=== PATIENT | male | born 1940 | race Caucasian/White ===

== ENCOUNTER → 2023-08-17 16:44 | Outpatient (REF) | payer MEDICARE, OTHER, SELFPAY ==
[2023-08-17 19:02] LABS: PSA, Total - Diagnostic 5.09 ng/ml (0.0-4.0)
== END ==
LOC: REG 16:44
PROVIDERS: ATTENDING PHYSICIAN Specialist; FAMILY PHYSICIAN Internal Medicine
DX: R97.20 Elevated prostate specific antigen [PSA] (principal)
CPT/HCPCS: 36415; 84153

== ENCOUNTER → 2024-04-10 09:09 | Outpatient (REF) | payer OTHER, SELFPAY ==
[2024-04-10 12:04] LABS: PSA, Total - Diagnostic 4.71 ng/ml (0.0-4.0)
== END ==
LOC: REG 09:09
PROVIDERS: ATTENDING PHYSICIAN Specialist; FAMILY PHYSICIAN Internal Medicine
DX: R97.20 Elevated prostate specific antigen [PSA] (principal)
CPT/HCPCS: 36415; 84153

== ENCOUNTER → 2024-10-02 12:31 | Outpatient (REF) | payer OTHER, SELFPAY ==
[2024-10-02 13:02] LABS: % Basophils 0.7 % (0-2); % Eosinophils 2.4 % (0-6); % Immature Granulocytes 0.3 % (0-0.5); % Lymphocytes 19.4 % (20.5-51.1); % Monocytes 8.6 % (1.7-9.3); % Neutrophils 68.6 % (42.2-75.2); Absolute Basophils 0.1 10^3/uL (0-0.2); Absolute Eosinophils 0.2 10^3/uL (0-0.7); Absolute Lymphocytes 1.4 10^3/uL (1.2-3.4); Absolute Monocytes 0.6 10^3/uL (0.1-0.6); Absolute Neutrophils 4.9 10^3/uL (1.4-6.5); Hematocrit 43.9 % (39.0-52.0); Hemoglobin 14.4 g/dL (13.0-18.0); Mean Corp Hgb Conc. 32.8 g/dL (33.0-37.0); Mean Corpuscular Hgb 30.3 pg (27.0-31.0); Mean Corpuscular Volume 92.4 fL (80.0-94.0); Mean Platelet Volume 11.2 fL (7.4-10.4); Nucleated Red Blood Cells % 0 % (-); Platelet Count 215 10^3/uL (130-400); Red Blood Cell Count 4.75 10^6/uL (4.70-6.10); Red Cell Dist. Width 12.6 % (11.5-14.5); White Blood Cell Count 7.1 10^3/uL (4.8-10.8)
[2024-10-02 14:10] LABS: Blood Urea Nitrogen 41 mg/dl (9-20); Calcium 9.5 mg/dl (8.4-10.2); Carbon Dioxide 21 mmol/L (22-30); Chloride 110 mmol/L (98-107); Glucose 109 mg/dl (70-99); Potassium 5.9 mmol/L (3.5-5.1); Sodium 138 mmol/L (135-145); eGFR 34.35
[2024-10-02 14:45] LABS: TSH Reflex To Free T4 3.79 uIU/ml (0.47-4.68)
== END ==
LOC: CLAB 12:31
PROVIDERS: ATTENDING PHYSICIAN Emergency Medicine
DX: R00.2 Palpitations (principal)
CPT/HCPCS: 36415; 80048; 84443; 85025

== ENCOUNTER 2024-10-03 08:45 | Emergency (ER) | payer OTHER, SELFPAY ==
[2024-10-03 08:52] VITALS: BP 129/86
--- NOTE | 2024-10-03 09:09 | ED.GENMED ---
History of Present Illness
General
Chief Complaint: Abnormal Lab Value
Time Seen by Provider: 10/03/24 08:59
History of Present Illness
History of Present Illness:
Patient is an 84-year-old male with past medical history of BPH here today after he underwent laboratory testing at an urgent care on 10/01/24 and was found to have an abnormal potassium level which was noted to be elevated at 5.9. Patient
originally went to the urgent care as he reports having a 'cold' over the past 1 week which consisted of a cough and congestion. No fevers. No vomiting. No breathing problems noted. Patient also noted palpitations. Patient was diagnosed with a
respiratory illness and supportive measures were recommended. Blood work was obtained which ultimately revealed the elevated potassium level. Unknown hemolyzation. An EKG was obtained given reported palpitations which patient was found to have
evidence of premature ventricular contractions. He was recommended to follow-up with cardiology. Today, patient reports feeling better overall. He denies acute complaints currently.
Past History
Past History
ED Past Medical History: Renal failure (Mild renal insufficiency.) and Other (BPH); Negative CAD
ED Past Surgical History: Cholecystectomy
Social History
Tobacco: Non-smoker
Alcohol: Occasional
Drug: None
Personal:
Living: with family
Employment: Retired
Family History
Family History: Other (Noncontributory)
Review of Systems
Review of Systems
All Other Systems: ROS reviewed and negative except as documented in HPI and ROS
Phy Exam
Physical Exam
Physical Exam:
GENERAL: Alert , in no apparent distress
EYE: pupils equal and reactive
NECK: Supple, no significant adenopathy.
ENT: o/p clr, mmm.
CARDIAC: Regular rate and rhythm .
LUNGS: Clear breath sounds bilaterally, no acute respiratory distress, no wheezes/rales/rhonchi
ABDOMEN: Soft, without focal tenderness, no r/g, no cvat
NEUROLOGICAL: Alert and oriented, no focal neuro deficits
SKIN: Warm and dry, skin intact.
MUSCULOSKELETAL: No edema, well perfused.
PSYCH: Normal and appropriate interaction.
Course
Orders/Labs/Results
Orders:
Orders
10/03/24 08:56
Electrocardiogram (*1) Urgent
Reason for Study: Abnormal EKG
EKG- Treatment ONCE
10/03/24 09:09
CR Chest - 2 Views Urgent
Comment:
Reason For Exam: palpitations
10/03/24 09:12
Complete Blood Count/With Diff Urgent
Comprehensive Metabolic Panel Urgent
Magnesium Urgent
Phosphorus Urgent
TSH Reflex To Free T4 Urgent
Troponin I Urgent
10/03/24 10:52
CT Chest With Iv Contrast Urgent
Comment:
Reason For Exam: abnormal chest ct, lung nodule
Abnormal Lab Results
10/03/24
09:12
RBC 4.30 L 10^6/uL
(4.70-6.10)
Absolute Lymphs (auto) 1.1 L 10^3/uL
(1.2-3.4)
Immature Gran % 0.7 H %
(0-0.5)
Lymphocytes % 17.9 L %
(20.5-51.1)
Chloride 113 H mmol/L
(98-107)
BUN 50 H mg/dl
(9-20)
Creatinine 1.6 H mg/dL
(0.7-1.3)
Glucose 102 H mg/dl
(70-99)
Total Protein 6.1 L g/dl
(6.3-8.2)
10/03/24 09:12
10/03/24 09:12
Vital Signs
Initial and Last Documented VS:
Initial Vital Signs
Temp Pulse Resp BP Pulse Ox
98.4 F 77 18 129/86 95
10/03/24 08:52 10/03/24 08:52 10/03/24 08:52 10/03/24 08:52 10/03/24 08:52
Last Documented Vital Signs
Temp Pulse Resp BP Pulse Ox
98.4 F 63 20 129/86 95
10/03/24 08:52 10/03/24 11:30 10/03/24 11:30 10/03/24 08:52 10/03/24 09:29
MDM/Problems Addressed
Differential Diagnosis Includes:
Patient is an 84-year-old male with past medical history of BPH here today for an abnormal potassium level. Overall, patient appears very well. Vital signs grossly within normal limits. Physical examination described above. Repeat EKG was
obtained which reveals no acute abnormalities. No evidence of PVCs. We will repeat the patient's blood work and determine if the potassium was a true elevation or falsely elevated secondary to hemolysis. Will monitor.
10/03/2024 13:39: Screening labs reveal an elevated BUN and creatinine which is grossly consistent with the patient's baseline. Potassium which was previously elevated is now normal at 4.7. EKG nonischemic without acute abnormalities. Chest x-ray
shows a right lung base rounded opacity which radiology recommends CT scan. This was performed which reveals no findings noted and the previously noted abnormality was likely artifact. There is evidence of infectious or inflammatory bronchiolitis
on the patient's chest x-ray which explains the most recent cough/cold. This is likely viral and will recommend continued supportive measures. We discussed close follow-up with patient's primary care provider as well as cardiology evaluation for
Holter monitor and further evaluation of the PVCs. All questions answered. Stable for discharge
*Pulse Oximetry
SaO2: 95
Oxygen Mode of Delivery: Room air
Patient hypoxic: not evaluated
*EKG
Interpreted by ED Provider?: Yes
EKG Intrepretation Date: 10/03/24
EKG Intrepretation Time: 09:29
Interpretation: normal
Heart Rate: 68
Rate: normal
Rhythm: sinus
[place]: normal axis
Interval: normal interval
QRS Pattern: normal QRS
Ischemia: no ischemia
*Critical Care Note
Total Time (30-74mins, 75-104mins- exclusive of procedures): Not Applicable
ED Attending Note
-
Portions of this chart may have been created with voice recognition software.� Occasional wrong word or��sound alike� substitutions may have occurred due to the inherent limitations of voice recognition software.
Discharge Plan
Departure
Patient Disposition: Home (Routine Discharge)
Date of Disposition: 10/03/24
Time of Disposition: 13:41
Patient with high blood pressure during this ER visit?: No
Condition: Good
Discharge Problem:
Abnormal laboratory test, Palpitations, Bronchiolitis
Instructions: Palpitations
Prescriptions:
No Action
dutasteride 0.5 mg capsule
0.5 mg PO DAILY
Referrals:
Farooq Madden MD [Active, Cardiology] - Follow up in 1 week
Abraham Padilla MD [Family Provider, Internal Medicine] - Follow up in 2-3 days
Activity Restrictions/Additional Instructions:
Please follow-up with your primary care provider as well as cardiology for further testing and evaluation.
Return for any new, worsening, or concerning symptoms.
Interventions
Interventions:
*Risk Screen - Suicide Last Done: 10/03/24 08:52
*General Assessment Last Done: 10/03/24 08:52
*Neglect/Abuse Screening Last Done: 10/03/24 08:52
Discharge Date and Time
Print Language: SUDANESE
[2024-10-03 09:32] LABS: % Basophils 0.7 % (0-2); % Eosinophils 1.8 % (0-6); % Immature Granulocytes 0.7 % (0-0.5); % Lymphocytes 17.9 % (20.5-51.1); % Monocytes 9.1 % (1.7-9.3); % Neutrophils 69.8 % (42.2-75.2); Absolute Eosinophils 0.1 10^3/uL (0-0.7); Absolute Lymphocytes 1.1 10^3/uL (1.2-3.4); Absolute Monocytes 0.6 10^3/uL (0.1-0.6); Absolute Neutrophils 4.2 10^3/uL (1.4-6.5); Hematocrit 39.4 % (39.0-52.0); Hemoglobin 13.3 g/dL (13.0-18.0); Mean Corp Hgb Conc. 33.8 g/dL (33.0-37.0); Mean Corpuscular Hgb 30.9 pg (27.0-31.0); Mean Corpuscular Volume 91.6 fL (80.0-94.0); Mean Platelet Volume 9.5 fL (7.4-10.4); Nucleated Red Blood Cells % 0 % (-); Platelet Count 208 10^3/uL (130-400); Red Cell Dist. Width 12.8 % (11.5-14.5)
[2024-10-03 09:58] LABS: ALT (SGPT) 22 U/L (0-50); AST (SGOT) 27 U/L (17-59); Albumin 3.7 g/dl (3.5-5.0); Alkaline Phosphatase 75 U/L (38-126); Blood Urea Nitrogen 50 mg/dl (9-20); Carbon Dioxide 23 mmol/L (22-30); Chloride 113 mmol/L (98-107); Glucose 102 mg/dl (70-99); Magnesium 2.2 mg/dl (1.6-2.3); Phosphorus 4.2 mg/dl (2.5-4.5); Potassium 4.7 mmol/L (3.5-5.1); Sodium 141 mmol/L (135-145); Total Bilirubin 0.5 mg/dl (0.2-1.3); Total Protein 6.1 g/dl (6.3-8.2); eGFR 42.22
[2024-10-03 10:06] LABS: Troponin I < 0.012 ng/ml
[2024-10-03 10:26] LABS: TSH Reflex To Free T4 2.58 uIU/ml (0.47-4.68)
[2024-10-03 11:38] VITALS: BP 135/78
[2024-10-03 12:00] VITALS: BP 130/73
[2024-10-03 13:00] VITALS: BP 137/70
[2024-10-03 13:45] VITALS: BP 137/70
== END 2024-10-03 14:05 | disposition home or self-care (01) ==
LOC: EMR 08:45
PROVIDERS: Emergency Medicine; Physician Assistant; EMERGENCY PHYSICIAN Emergency Medicine; FAMILY PHYSICIAN Internal Medicine
DX: J21.9 Acute bronchiolitis, unspecified (principal); R00.2 Palpitations; R79.9 Abnormal finding of blood chemistry, unspecified; N40.0 Benign prostatic hyperplasia without lower urinary tract symptoms
CPT/HCPCS: 99285; 71046; 71260; 80053; 83735; 84100; 84443; 84484; 85025; 93005; Q9967

== ENCOUNTER → 2024-10-09 07:31 | Outpatient (REF) | payer OTHER, SELFPAY ==
[2024-10-09 08:36] LABS: Hematocrit 39.7 % (39.0-52.0); Hemoglobin 13.2 g/dL (13.0-18.0); Mean Corp Hgb Conc. 33.2 g/dL (33.0-37.0); Mean Corpuscular Volume 92.5 fL (80.0-94.0); Nucleated Red Blood Cells % 0 % (-); Platelet Count 254 10^3/uL (130-400); Red Cell Dist. Width 12.7 % (11.5-14.5)
[2024-10-09 09:20] LABS: AST (SGOT) 23 U/L (17-59); Albumin 3.7 g/dl (3.5-5.0); Alkaline Phosphatase 71 U/L (38-126); Blood Urea Nitrogen 40 mg/dl (9-20); Calcium 9.0 mg/dl (8.4-10.2); Carbon Dioxide 22 mmol/L (22-30); Chloride 113 mmol/L (98-107); Glucose 101 mg/dl (70-99); HDL Cholesterol 58 mg/dl; LDL Cholesterol, Calculated 151 mg/dl; Potassium 4.8 mmol/L (3.5-5.1); Sodium 139 mmol/L (135-145); Total Protein 6.1 g/dl (6.3-8.2); Very Low Density Lipoprotein 21 mg/dl (0-30); eGFR 42.22
[2024-10-09 09:25] LABS: Urine Character Clear (Clear)
[2024-10-09 10:13] LABS: ALT (SGPT) 16 U/L (0-50)
== END ==
LOC: REG 07:31
PROVIDERS: ATTENDING PHYSICIAN Internal Medicine
DX: N18.1 Chronic kidney disease, stage 1 (principal); R00.2 Palpitations; N40.0 Benign prostatic hyperplasia without lower urinary tract symptoms
CPT/HCPCS: 36415; 80053; 80061; 81003; 84443; 85025

== ENCOUNTER → 2024-12-20 09:25 | Outpatient (REF) | payer OTHER, SELFPAY ==
[2024-12-20 10:41] LABS: Hematocrit 41.1 % (39.0-52.0); Hemoglobin 13.9 g/dL (13.0-18.0); Mean Corp Hgb Conc. 33.8 g/dL (33.0-37.0); Mean Corpuscular Volume 90.3 fL (80.0-94.0); Nucleated Red Blood Cells % 0 % (-); Platelet Count 264 10^3/uL (130-400); Red Cell Dist. Width 12.9 % (11.5-14.5)
[2024-12-20 11:17] LABS: Blood Urea Nitrogen 41 mg/dl (9-20); Calcium 9.1 mg/dl (8.4-10.2); Carbon Dioxide 23 mmol/L (22-30); Chloride 111 mmol/L (98-107); Glucose 102 mg/dl (70-99); HDL Cholesterol 71 mg/dl; LDL Cholesterol, Calculated 196 mg/dl; Potassium 4.4 mmol/L (3.5-5.1); Sodium 140 mmol/L (135-145); Very Low Density Lipoprotein 16 mg/dl (0-30); eGFR 49.56
== END ==
LOC: REG 09:25
PROVIDERS: ATTENDING PHYSICIAN Specialist; FAMILY PHYSICIAN Internal Medicine
DX: E78.00 Pure hypercholesterolemia, unspecified (principal); Z01.818 Encounter for other preprocedural examination
CPT/HCPCS: 36415; 80048; 80061; 85025

== ENCOUNTER → 2025-01-06 08:57 | Outpatient (REF) | payer OTHER, SELFPAY | LOC: HWRCS 08:57 | PROVIDERS: ATTENDING PHYSICIAN Internal Medicine Cardiovascular Disease; FAMILY PHYSICIAN Internal Medicine | DX: R55 Syncope and collapse (principal); I49.3 Ventricular premature depolarization | CPT/HCPCS: 93306 ==

== ENCOUNTER → 2025-01-22 06:58 | Outpatient (REF) | payer OTHER, SELFPAY | LOC: RCS 06:58 | PROVIDERS: ATTENDING PHYSICIAN Internal Medicine Cardiovascular Disease; FAMILY PHYSICIAN Internal Medicine | DX: R55 Syncope and collapse (principal); I49.3 Ventricular premature depolarization; E78.00 Pure hypercholesterolemia, unspecified | CPT/HCPCS: 78452; 93017; 93225; 93226; A9500 ==

== ENCOUNTER 2025-02-05 06:24 | Day surgery (SDC) | payer OTHER, SELFPAY ==
[2025-01-29 09:29] LABS: Hematocrit 40.1 % (39.0-52.0); Hemoglobin 13.7 g/dL (13.0-18.0); Mean Corp Hgb Conc. 34.2 g/dL (33.0-37.0); Mean Corpuscular Volume 90.7 fL (80.0-94.0); Nucleated Red Blood Cells % 0 % (-); Platelet Count 188 10^3/uL (130-400); Red Cell Dist. Width 12.7 % (11.5-14.5)
[2025-01-29 10:12] LABS: ALT (SGPT) 21 U/L (0-50); AST (SGOT) 32 U/L (17-59); Albumin 3.8 g/dl (3.5-5.0); Alkaline Phosphatase 68 U/L (38-126); Blood Urea Nitrogen 33 mg/dl (9-20); Calcium 9.0 mg/dl (8.4-10.2); Carbon Dioxide 26 mmol/L (22-30); Chloride 110 mmol/L (98-107); Glucose 104 mg/dl (70-99); Potassium 4.2 mmol/L (3.5-5.1); Sodium 138 mmol/L (135-145); Total Protein 6.3 g/dl (6.3-8.2); eGFR 49.25
[2025-01-29 13:40] VITALS: BMI 27.4
[2025-02-05] VITALS (11 sets, daily range): BP systolic 122–154; BP diastolic 61–78
[2025-02-05] MEDS: NSS 275 ML IV (07:13)
--- NOTE | 2025-02-05 08:41 | ITS.CL.CATH ---
[facility] - Catheterization
Cardiac Catheterization
Procedure Report:
CARDIAC CATHETERIZATION REPORT
Date of Procedure: 02/05/2025
Referring: Silvano Woodward M.D.
INDICATION: Syncope, NSVT on Holter monitor, abnormal stress test.
PROCEDURE:
1. Left heart catheterization.
2. Coronary angiography.
A total of 27 minutes of procedural/moderate sedation was utilized. An independent medical field representative was present to assist with and help manage the patient's level of consciousness and physiologic status.
ACCESS:
1. 6 [place] right radial artery using a modified Seldinger technique.
CATHETERS:
1. 5 [place] JR4.
2. 5 [place] JL 3.5.
HEMODYNAMIC DATA
Weight (kg): 91.2
AO (s/d/x, mmHg): 123/66/90
LV (s/x mmHg): 126/11
AV gradient (x, mmHg): None.
LEFT VENTRICULOGRAPHY: Normal.
CORONARY ANGIOGRAPHY
Dominance: Right.
Left Main: Normal size, bifurcating vessel. There is no coronary artery disease.
LAD: Normal size vessel giving rise to 1 significant diagonal which subsequently bifurcates into 2 separate vessels. There is a 30% lesion in the ostium of the diagonal.
Ramus: Congenitally absent.
Circumflex: Large size, nondominant vessel giving rise to 2 obtuse marginals. OM1 is a small, 1 mm vessel that arises very high off of the circumflex. OM 2 is an enormous vessel which supplies the entire inferolateral wall. There is
moderate tortuosity. There is no coronary artery disease.
RCA: Large size, dominant vessel with a large posterolateral arcade and an anterior origin making it difficult to cannulate from a radial approach. There is no coronary artery disease. There is moderate to severe tortuosity in the RPL.
INTERVENTION(S)
None.
Closure Device: Vascular band.
Radiation (mGy): 464.26
DAP (cm2.Gy): 27.4041
Fluoroscopy time (minutes): 3.8
CONCLUSIONS
1. Right dominant circulation with moderate to severe tortuosity of the RPL, moderate tortuosity of the large OM 2 and a 30% lesion in the origin of the first diagonal.
2. Normal filling pressures (LVEDP = 11 mmHg at 91.2 kg).
3. No ischemic nidus for NSVT.
4. False positive SPECT perfusion.
RECOMMENDATIONS:
1. Expectant management after cardiac catheterization via right radial approach.
2. Limited weight bearing on the right wrist for one week.
3. Start aspirin 81 mg daily for 30% ostial diagonal lesion.
4. Given his age, I do not see a role for aggressive lipid management given his relative minor coronary artery disease.
5. Consultation with general cardiology and electrophysiology regarding indications for EP study in the setting of NSVT with syncope.
6. Stable for outpatient follow-up.
Copy to: Silvano Woodward M.D., Abraham Padilla M.D.
Fuentes Abdul DO, FACC, FACP
== END 2025-02-05 11:30 | disposition home or self-care (01) ==
LOC: CATH 06:24
PROVIDERS: ATTENDING PHYSICIAN Student in an Organized Health Care Education/Training Program; FAMILY PHYSICIAN Internal Medicine; OTHER PHYSICIAN Internal Medicine Cardiovascular Disease
DX: I25.10 Atherosclerotic heart disease of native coronary artery without angina pectoris (principal); R94.39 Abnormal result of other cardiovascular function study; R55 Syncope and collapse; I47.20 Ventricular tachycardia, unspecified; Z79.82 Long term (current) use of aspirin; E78.00 Pure hypercholesterolemia, unspecified; Z79.899 Other long term (current) drug therapy; I49.3 Ventricular premature depolarization
CPT/HCPCS: 99152; 99153; 36415; 80053; 85025; 93005; 93458; C1769; C1894

== ENCOUNTER → 2025-04-08 11:02 | Outpatient (REF) | payer OTHER, SELFPAY ==
[2025-04-08 12:08] LABS: Hematocrit 41.1 % (39.0-52.0); Hemoglobin 13.5 g/dL (13.0-18.0); Mean Corp Hgb Conc. 32.8 g/dL (33.0-37.0); Mean Corpuscular Volume 94.3 fL (80.0-94.0); Nucleated Red Blood Cells % 0 % (-); Platelet Count 223 10^3/uL (130-400); Red Cell Dist. Width 13.0 % (11.5-14.5)
[2025-04-08 12:53] LABS: ALT (SGPT) 21 U/L (0-50); AST (SGOT) 26 U/L (17-59); Albumin 3.8 g/dl (3.5-5.0); Alkaline Phosphatase 90 U/L (38-126); Blood Urea Nitrogen 30 mg/dl (9-20); Calcium 8.8 mg/dl (8.4-10.2); Carbon Dioxide 26 mmol/L (22-30); Chloride 108 mmol/L (98-107); Glucose 104 mg/dl (70-99); Potassium 5.0 mmol/L (3.5-5.1); Sodium 139 mmol/L (135-145); Total Protein 6.4 g/dl (6.3-8.2); eGFR 41.96
== END ==
LOC: REG 11:02
PROVIDERS: ATTENDING PHYSICIAN Internal Medicine Cardiovascular Disease; FAMILY PHYSICIAN Internal Medicine
DX: R55 Syncope and collapse (principal); I49.3 Ventricular premature depolarization; R07.89 Other chest pain; R42 Dizziness and giddiness; I47.29 Other ventricular tachycardia
CPT/HCPCS: 36415; 80053; 85025